=== PATIENT | female | born 1990 | race Caucasian/White ===

== ENCOUNTER → 2016-08-29 | Day surgery (SDC) | payer OTHER ==
[~2016-08-29] MED LIST: BIRTH CONTROL PO; KEFLEX500 MG PO; NORCO 5-325 TA1 EACH PO
[2016-08-29 11:37] LABS: HEMOGLOBIN 13.9 gm/dl (12.3-15.3); RED BLOOD COUNT 4.45 M/UL (4.00-5.10)
== END | disposition home or self-care (01) ==
LOC: OR 11:02
PROVIDERS: Obstetrics & Gynecology
PROC: 0UBL0ZZ Excision of Vestibular Gland, Open Approach (ICD-10-PCS; principal; 2016-08-29 11:45)
DX: N75.1 Abscess of Bartholin's gland (principal); Z88.1 Allergy status to other antibiotic agents
CPT/HCPCS: 36415; 81001; 84703; 85025; 87070; 87077; 87186; 87205; J1885; J2250; J2405; J2795; J7120